=== PATIENT | female | born 2000 | race Caucasian/White ===

== ENCOUNTER 2021-05-01 05:39 | Outpatient (CLI) | payer MEDICAID ==
[~2021-05-01] VITALS: Ht 147.3 cm; Wt 53.2 kg
[2021-05-01] MEDS ORDERED: LAMO100T69 PO (12:51)
[2021-05-01] MEDS ORDERED: BUSP15TA60 PO (12:51)
== END 2021-05-01 12:54 | disposition home or self-care (01) ==
LOC: PREOP 05:39
PROVIDERS: ATTEND Otolaryngology Otolaryngology/Facial Plastic Surgery
DX: Z01.818 Encounter for other preprocedural examination (principal)

== ENCOUNTER 2021-05-08 06:11 | Day surgery (SDC) | payer MEDICAID ==
[~2021-05-08] VITALS: Ht 147 cm; Wt 53.2 kg
[~2021-05-08 06:11] MED LIST: BUSP15TA60 PO; LAMO100T69 PO
--- NOTE | 2021-05-08 06:48 | Progress Note-Pre Operative ---
Pre-Operative Progress Note H&P Reviewed The H&P was reviewed, patient examined and no changes noted. Date Seen by Provider: May 08, 2021 Time Seen by Provider: 06:30 Date H&P Reviewed: May 08, 2021 Time H&P Reviewed: 06:30 Pre-Operative Diagnosis: Rec Tons/ Tonsillar HYpertrophy PATRICIO BROTHERS MD May 08, 2021 06:48
[2021-05-08] MEDS ORDERED: MIDAZOLAM 2 MG/2 ML (VERSED) VIAL ONE ×2 (07:05→07:42)
[2021-05-08 07:09] LABS: BASOPHILS # (AUTO) 0.1 10^3/uL (0.0-0.1); BASOPHILS % (AUTO) 1 % (0-10); EOSINOPHILS # (AUTO) 0.2 10^3/uL (0.0-0.3); EOSINOPHILS % (AUTO) 2 % (0-10); HEMATOCRIT 42 % (35-52); LYMPHOCYTES # (AUTO) 2.6 10^3/uL (1.0-4.0); LYMPHOCYTES % (AUTO) 40 % (12-44); MEAN CORPUSCULAR HEMOGLOBIN 30 pg (25-34); MEAN CORPUSCULAR HGB CONC 33 g/dL (32-36); MEAN CORPUSCULAR VOLUME 91 fL (80-99); MEAN PLATELET VOLUME 10.5 fL (9.0-12.2); MONOCYTES # (AUTO) 0.5 10^3/uL (0.0-1.0); MONOCYTES % (AUTO) 8 % (0-12); NEUTROPHILS # (AUTO) 3.2 10^3/uL (1.8-7.8); NEUTROPHILS % (AUTO) 49 % (42-75); PLATELET COUNT 266 10^3/uL (130-400); WHITE BLOOD COUNT 6.6 10^3/uL (4.3-11.0)
[2021-05-08] MEDS ORDERED: LACTATED RINGERS 1,000 ML IV PRN (07:15)
[2021-05-08] MEDS ORDERED: MIDAZOLAM 2 MG/2 ML (VERSED) VIAL IV ONE (07:15)
[2021-05-08] MEDS ORDERED: MIDAZOLAM 2 MG/2 ML (VERSED) VIAL IVP ONE (07:15)
[2021-05-08] MEDS ORDERED: GLYCOPYRROLATE 0.2 MG/ML (ROBINUL) 2 ML VIAL ONE ×2 (07:42→08:57)
[2021-05-08] MEDS ORDERED: NEOSTIGMINE 3 MG/3 ML VIAL ONE ×2 (07:42→08:54)
[2021-05-08] MEDS ORDERED: proPOfol 200 MG/20 ML (DIPRIVAN) VIAL IV ONE (07:42)
[2021-05-08] MEDS ORDERED: ONDANSETRON 4 MG/2 ML (SDV) Z0FRAN ONE ×2 (07:42→09:47)
[2021-05-08] MEDS ORDERED: ROCURONIUM 10 MG/ML 5 ML SYRINGE IV ONE (07:42)
[2021-05-08] MEDS ORDERED: LIDOCAINE PF 2% 5 ML (XYLOCAINE) VIAL ONE (07:42)
[2021-05-08] MEDS ORDERED: fentaNYL INJ 100 MCG/2 ML AMP ONE (07:42)
--- NOTE | 2021-05-08 08:18 | Progress Note-Post Operative ---
Post-Operative Progess Note Surgeon (s)/Celluloid Trimmer (s) Surgeon PATRICIO BROTHERS MD Celluloid Trimmer n/a Pre-Operative Diagnosis Rec Tons/ Tonsillar HYpertrophy Post-Operative Diagnosis same Post-Op Procedure Note Date of Procedure: May 08, 2021 Name of Procedure Performed: T/A Description & Findings Description and Findings: n/a Anesthesia Type get Estimated Blood Loss minimal Packing none. Specimen(s) collected/removed tonsils PATRICIO BROTHERS MD May 08, 2021 08:18
[2021-05-08] MEDS ORDERED: NS IV 1000 ML 1,000 ML IV SCH (08:30)
[2021-05-08] MEDS ORDERED: HYDROcodone/APAP 7.5MG-325 MG/15 ML (LORTAB) UDC PO PRN (08:30)
[2021-05-08] MEDS ORDERED: APAP 325 MG/10.15 ML LIQ (TYLENOL) UDC PO PRN (08:30)
[2021-05-08 08:47] VITALS: BP 134/92
[2021-05-08 08:50] VITALS: BP 149/96
--- NOTE | 2021-05-08 08:52 | Anesthesia-General Post-Op ---
General Patient Condition Mental Status/LOC: Same as Preop Cardiovascular: Satisfactory Nausea/Vomiting: Absent Respiratory: Satisfactory Pain: Controlled Complications: Absent Post Op Complications Complications None Follow Up Care/Instructions Patient Instructions None needed. Anesthesia/Patient Condition Patient Condition Patient is doing well, no complaints, stable vital signs, no apparent adverse anesthesia problems. No complications reported per nursing. KOFI MORALEZ CRNA May 08, 2021 08:52
[2021-05-08 09:00] VITALS: BP 133/86
[2021-05-08] MEDS ORDERED: MEPERIDINE (DEMEROL) INJ 50 MG/ML IVP ONE (09:00)
[2021-05-08] MEDS ORDERED: morphine INJ 10 MG/ML 1ML (SYR OR VIAL) IVP ONE (09:00)
[2021-05-08] MEDS ORDERED: fentaNYL INJ 100 MCG/2 ML AMP IVP ONE (09:00)
[2021-05-08] MEDS ORDERED: ONDANSETRON 4 MG/2 ML (SDV) Z0FRAN IVP PRN (09:00)
[2021-05-08 09:10] VITALS: BP 135/82
[2021-05-08 09:20] VITALS: BP 130/86
[2021-05-08 09:30] VITALS: BP 129/84
[2021-05-08] MEDS ORDERED: ONDANSETRON 4 MG/2 ML (SDV) Z0FRAN IVP ONE (09:45)
[2021-05-08] MEDS ORDERED: TETRACAINESUCKERS MT (11:14)
[2021-05-08] MEDS ORDERED: DEXAINTSOL PO (11:14)
[2021-05-08] MEDS ORDERED: AMOX250S5 PO (11:14)
[2021-05-08] MEDS ORDERED: HYDR15SO8 PO (11:14)
--- OUTSIDE RECORDS SUMMARY | 2021-05-10 20:07 | XMS REPORT | Continuity of Care Document ---
Author Author [facility] Organization [facility] Address Unknown Phone Unavailable Care Team Providers Care Ccna Name Role Phone Daryl Gregory PCP (0)- Encounter [facility] [phone] Date(s): 05/05/21 - 05/05/21 [facility] [address] [place], [place] [address] Discharge Disposition: Home or Self Care Attending Physician: Bridger Atkins Admitting Physician: Bridger Atkins Allergies, Adverse Reactions, Alerts No data available for this section Assessment and Plan No data available for this section Functional Status No data available for this section Immunizations No data available for this section Medications No data available for this section Mental Status No data available for this section Problem List No data available for this section Procedures No data available for this section Results Laboratory List Name Date SARS-CoV-2 by PCR 05/05/21 Most recent to 1 oldest [Reference Range]: SARS-CoV-2 NEGATIVE [NEGATIVE] (05/05/21 4:46 PM) Vital Signs No data available for this section Social History No data available for this section Health Concerns No data available for this section Medical Equipment No data available for this section Hospital Discharge Instructions No data available for this section Goals No data available for this section Reason for Referral No data available for this section Hospital Course No data available for this section
--- OUTSIDE RECORDS SUMMARY | 2021-05-10 20:07 | XMS REPORT | Clinical Summary ---
Author Author Nighat, Jean Carlos Stafford Organization [facility] Address Unknown Phone Unavailable Allergies, Adverse Reactions, Alerts Allergy Name Reaction Description Start Date Severity Status Pr ovider No Known Allergies MALLIKA Corcoran Conditions or Problems Problem Name Problem Code Onset Date Status Entry Date Provider Comment Standard Description Annotate NOCTURNAL ENURESIS 788.36 Resolved Odalys Iraheta APRN Nocturnal enuresis WELL CHILD V20.2 Active Daryl Gregory MD Routine or child health check SINUSITIS, ACUTE 461.9 Resolved Daryl Gregory MD Acute sinusitis, unspecified NEOPLASM OF UNCERTAIN BEHAVIOR OF SKIN 238.2 Resolved Odalys Iraheta APRN Neoplasm of uncertain behavior of skin ACNE VULGARIS 706.1 Active Daryl Gregory MD Other acne Upper respiratory infection 465.9 Resolved Kimberly Handley MD PhD Acute upper respiratory infections of un specified site Joint pain 719.40 Resolved Kimberly Handley MD PhD Pain in joint, site unspecified Sinusitis, acute 461.9 Resolved Odalys Iraheta APRN Acute sinusitis, unspecified Pharyngitis 462 Resolved Odalys Iraheta APRN Acute pharyngitis Abdominal pain, acute 789.00 Resolved Mady Iraheta APRN Abdominal pain, unspecified site Hand, foot and mouth disease 074.3 Resolved Odalys Iraheta APRN Hand, foot, and mouth disease Sports physical V70.3 Resolved Daryl Grady Other general medical examination for administrative purposes Depression with anxiety 300.4 Active Sid Iraheta APRN Dysthymic disorder Suicidal ideation V62.84 Resolved Odalys barclay APRN Suicidal ideation Contraception counseling V25.09 Active Odalys Irhaeta APRN Encounter for other general counseling and advice on contraceptive management Safe sex and std prevention counseling V65.45 Resolved Daryl Gregory MD Counseling on other sexually transmitted diseases U R I 465.9 Resolved Daryl Gregory MD Acute upper respiratory infections of unspecified site Bronchitis 490 Resolved Daryl Gregory MD Bronchitis, not specified as acute or chronic Oppositional defiant disorder 313.81 Active 12/10 Summer Villalobos Oppositional defiant disorder of childho od or adolescence Bipolar 1 disorder 296.7 Active Summer Villalobos Bipolar I disorder, most recent episode (or current) unspecified Abdominal pain, RUQ 789.01 Resolved Daryl valdivia MD Abdominal pain, right upper quadrant Body Mass Index Percentile Pediatric 5th percentile to less than 85th percentile for age Active Daryl Gregory MD Body Mass Index, pediatric, 5th percentile to less than 85th percentile for age Hand, foot and mouth disease 074.3 Resolved Daryl Gregory MD Hand, foot, and mouth disease High risk medication management V58.69 Active 2017 Yulisa Burks LRT Long-term (current) use of other medicat ions Otitis media, right 382.9 Resolved Bettie oRberts [employer]ER Unspecified otitis media Abdominal pain, acute 789.00 Resolved Garrett 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 Abdominal pain, unspecified site Acute otitis externa, right 380.10 Resolved Bettie 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 Infective otitis externa, unspecified Eustachian tube dysfunction, bilateral 381.81 Resolved Bettie 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 Dysfunction of Eustachian tube Acute bronchitis 466.0 Resolved Daryl Gregory MD Acute bronchitis Pharyngitis 462 Active Daryl Gregory MD Acute pharyngitis Vomiting 787.03 Active Daryl Gregory MD Vomiting alone Preoperative exam V72.84 Active Hope Srinivasan Preoperative examination, unspecified NOCTURNAL ENURESIS ICD-788.36 Inactive Delores Iraheta [employer] HEATER INSTALLER SINUSITIS, ACUTE ICD-461.9 Inactive Daryl johnson MD NEOPLASM OF UNCERTAIN BEHAVIOR OF SKIN ICD-238.2 Inactive Odalys Iraheta [employer] HEATER IN[employer]ALLER Upper respiratory infection ICD-465.9 Inactive Kimberly Handley MD PhD Joint pain ICD-719.40 Inactive Kimberly Handley MD PhD Sinusitis, acute ICD-461.9 Inactive Allie Iraheta [employer] WATER HEATER INSTALLER Pharyngitis ICD-462 Inactive Odalys barclay [employer] WATER HEATER INSTALLER Abdominal pain, acute ICD-789.00 Inactive Mady Iraheta [employer] WATER HEATER INSTALLER Hand, foot and mouth disease ICD-074.3 Inactiv e Odalys Iraheta [employer] W[employer] HEATER INSTALLER Sports physical ICD-V70.3 Inactive Daryl Boone MD Suicidal ideation ICD-V62.84 Inactive Jammie Iraheta [employer] W[employer] HEATER INSTALLER Safe sex and std prevention counseling ICD-V65.45 20/09/03 Inactive Daryl Gregory MD U R I ICD-465.9 Inactive Daryl Gregory MD 2017 Bronchitis ICD-490 Inactive Daryl Gregory MD 201 05/11/06 Abdominal pain, RUQ ICD-789.01 Inactive Octavio Gregory MD Hand, foot and mouth disease ICD-074.3 Inactiv e Daryl Gregory MD Otitis media, right ICD-382.9 Inactive Moniq ue Armando [employer] W[employer] HEATER INSTALLER Abdominal pain, acute ICD-789.00 Inactive Mon ique Armando [employer] WATER HEATER INSTALLER Acute otitis externa, right ICD-380.10 Inactive Bettie Frankfort [employer] WATER HEATER INSTALLER Eustachian tube dysfunction, bilateral ICD-381.81 22/05/20 Inactive Bettie Frankfort [employer] WATER HEATER INSTALLER Acute bronchitis ICD-466.0 Inactive Daryl johnson MD Medication List Medication Instructions Start Date Stop Date Generic Name NDC Status Provider Patient Instruction TRANSDERM-SCOP (1.5 MG) 1 MG/3DAYS TRANSDERMAL PATCH 7 2 HOUR Apply 1 patch behind ear and change q3 days SCOPOLAMINE BASE 34805173180 Active MALLIKA Corcoran Active PROMETHAZINE HCL 25 MG ORAL TABLET 1 four times a day as nee ded for vomiting PROMETHAZINE HCL 55774606411 Active Susana Downing MA Active FLOVENT HFA 44 MCG/ACT INHALATION INHALER 2 puffs BID x2 weeks 2016 FLUTICASONE PROPIONATE HFA 44640541254 Active Bettie Armando [employer] INST[employer]ER Active VENTOLIN HFA 108 (90 BASE) MCG/ACT INHALATION AEROSOL SOLUTION 1-2 puffs up to four times a day as needed for cough or wheezing ALBUTEROL SULFATE 15006864213 Active Bettie Armando HERRERAN Active [id number] 1 % OTIC SOLUTION 4 drops to ear every 6 hours for 7 days [id number]-[id number]-MA 43762905586 No Longer Active Mo maxwell Armando YE Active LAMICTAL 10 MG ORAL TABLET (LAMOTRIGINE) LAMICTAL 10 MG ORAL TABLET (LAMOTRIGINE) Active Amira Estrada APRN-C Active AMOXICILLIN 500 MG ORAL TABLET 1 three times a day for 10 days 2 AMOXICILLIN 64598608826 No Longer Active Daryl Gregory MD Active BUSPIRONE HCL 10 MG ORAL TABLET Take 1 tablet by mouth twice daily BUSPIRONE HCL 85134928936 Active Lelo Shaw MA Active TESSALON PERLES 100 MG ORAL CAPSULE 2 tablets by mouth 3 times daily as needed for cough BENZONATATE 35315526544 No Longer Active Daryl Gregory MD Active GUAIFENESIN-CODEINE 100-10 MG/5ML ORAL SYRUP 5ml every 4 to 6 hours as needed for cough GUAIFENESIN-CODEINE 75629871027 No Longe r Active Daryl Gregory MD Active ZOLOFT 50 MG ORAL TABLET SERTRALINE HC L 42309612032 No Longer Active Daryl Gregory MD Active ABILIFY 10 MG ORAL TABLET Take 1 tablet by mouth at night 6 ARIPIPRAZOLE 81064912820 Active Daryl Gregory MD Active PREDNISONE 20 MG TABS Take 2 daily for 3 days and then 1 elenita ly for 3 days PREDNISONE 65721865518 No Longer Active Daryl johnson MD Active ZITHROMAX Z-CHAYA 250 MG TABS Take two tablets today and then 1 tablet daily for 4 days AZITHROMYCIN 60031696404 No Longer Active Octavio Gregory MD Active PREDNISONE 20 MG ORAL TABLET 2 tablets by mouth today, then 1 tablet by mouth days 2-4 PREDNISONE 03820151846 No Longer Active Daryl Gregory MD Active PAROXETINE HCL 20 MG ORAL TABLET 1 tab daily PAROXETINE HCL 19827570789 No Longer Active Hildasanti Florian Viktor ctive GENERESS FE TABLET CHEWABLE NORETHIN -ETH ESTRADIOL-FE CHEW 94979441385 Active Hildalorene Florian Active SPRINTEC 28 0.25-35 MG-MCG ORAL TABLET 1 pill by mouth daily for control for one month until mirena placement NOR GESTIMATE-ETH ESTRADIOL 15941515640 No Longer Active Hildasanti Florian Viktor ctive CLARITIN 10 MG ORAL TABLET 1 tablet by mouth daily as needed for allergies LORATADINE 99954511409 No Longer Active Odalys sosa APRN Active AZITHROMYCIN 250 MG ORAL TABLET 2 tabs po daily for 5 days. take with food AZITHROMYCIN 02471614845 No Longer Active Elizabeth cabrla APRN Active AZITHROMYCIN 250 MG ORAL TABLET 2 po qd x 1 day, then 1 po q d x 4 days AZITHROMYCIN 05454109297 No Longer Active Kimberly piedra MD PhD Active IMIPRAMINE HCL 10 MG ORAL TABLET 2- 4 TABS PO Q D 2014 IMIPRAMINE HCL 81096277702 No Longer Active Kimberly Handley MD PhD Ac tive GUAIFENESIN-CODEINE 100-10 MG/5ML ORAL SYRUP 1 tsp PO q6h PRN co ugh GUAIFENESIN-CODEINE 18211025093 No Longer Active Daryl Grady Active ATROVENT 0.06 % NASAL SOLUTION 1 to 2 sprays each nostril qi d prn runny nose IPRATROPIUM BROMIDE 10387251947 No Longer Active William Gregory MD Active RETIN-A 0.025 % EXTERNAL CREAM apply every evening to acne 06/02 TRETINOIN 53232304720 No Longer Active Daryl Gregory MD Active AMOXICILLIN 500 MG ORAL CAPSULE 2 po BID x 10 days 201 12/04/15 AMOXICILLIN 19979795222 No Longer Active Kimberly Handley MD PhD Acti ve RETIN-A 0.025 % EXTERNAL CREAM apply every evening to acne 06/02 RETIN-A 0.025 % EXTERNAL CREAM 214356 TRETINOIN I nactive ATROVENT 0.06 % NASAL SOLUTION 1 to 2 sprays each nostril qi d prn runny nose ATROVENT 0.06 % NASAL SOLUTION IPRATROPIU M BROMIDE Inactive GUAIFENESIN-CODEINE 100-10 MG/5ML ORAL SYRUP 1 tsp PO q6h PRN co ugh GUAIFENESIN-CODEINE 100-10 MG/5ML ORAL SYRUP GUA IFENESIN-CODEINE Inactive IMIPRAMINE HCL 10 MG ORAL TABLET 2- 4 TABS PO Q D 2014 IMIPRAMINE HCL 10 MG ORAL TABLET 155674 IMIPRAMINE HCL Inactiv e CLARITIN 10 MG ORAL TABLET 1 tablet by mouth daily as needed for allergies CLARITIN 10 MG ORAL TABLET 431979 LORATADINE I nactive SPRINTEC 28 0.25-35 MG-MCG ORAL TABLET 1 pill by mouth daily for control for one month until mirena placement SPR INTEC 28 0.25-35 MG-MCG ORAL TABLET 916087 NORGESTIMATE-ETH ESTRADIOL Inactive PAROXETINE HCL 20 MG ORAL TABLET 1 tab daily PAROXETINE HCL 20 MG ORAL TABLET 2782260 PAROXETINE HCL Inactive PREDNISONE 20 MG ORAL TABLET 2 tablets by mouth today, then 1 tablet by mouth days 2-4 PREDNISONE 20 MG ORAL TABLET 022886 PREDNIS ONE Inactive ZOLOFT 50 MG ORAL TABLET ZOLOFT 50 M G ORAL TABLET 053114 SERTRALINE HCL Inactive GUAIFENESIN-CODEINE 100-10 MG/5ML ORAL SYRUP 5ml every 4 to 6 hours as needed for cough GUAIFENESIN-CODEINE 100-10 MG/5ML ORAL SY RUP GUAIFENESIN-CODEINE Inactive TESSALON PERLES 100 MG ORAL CAPSULE 2 tablets by mouth 3 times daily as needed for cough TESSALON PERLES 100 MG ORAL CAPSULE 31823 7 BENZONATATE Inactive AMOXICILLIN 500 MG ORAL TABLET 1 three times a day for 10 days 2 AMOXICILLIN 500 MG ORAL TABLET 228324 AMOXICILLIN I nactive [id number]-YG 1 % OTIC SOLUTION 4 drops to ear every 6 hours for 7 days [id number]-[id number] 1 % OTIC SOLUTION 499183 [id number]-[id number]-TF Inactive AMOXICILLIN 500 MG ORAL CAPSULE 2 po BID x 10 days 201 12/04/15 AMOXICILLIN 500 MG ORAL CAPSULE 733291 AMOXICILLIN Inactive AZITHROMYCIN 250 MG ORAL TABLET 2 po qd x 1 day, then 1 po q d x 4 days AZITHROMYCIN 250 MG ORAL TABLET 213245 AZITHROMY YOMAIRA Inactive AZITHROMYCIN 250 MG ORAL TABLET 2 tabs po daily for 5 days. take with food AZITHROMYCIN 250 MG ORAL TABLET 293225 AZITHROMY YOMAIRA Inactive ZITHROMAX Z-CHAYA 250 MG TABS Take two tablets today and then 1 tablet daily for 4 days ZITHROMAX Z-CHAYA 250 MG TABS 553663 AZITHROM YCIN Inactive PREDNISONE 20 MG TABS Take 2 daily for 3 days and then 1 elenita ly for 3 days PREDNISONE 20 MG TABS 226441 PREDNISONE Inacti ve Advance Directives Directive Description Start Date DECREE OF ADOPTION Immunizations Vaccine Administration Date Value Standard Mt cription meningococcal vaccination #2 Menveo (Meningococc al)IM Human Papillomavirus vaccine (Gardasil) #2, (HPV #2) 10/07 Gardasil [CVX62] Adacel (Tetanus, reduced Diphtheria, and acellular Per tussis Immunization) Adacel [[id number]] Human Papillomavirus Vaccine (Gardasil) #1 Given (HPV #1) 20 16/05/30 Gardasil [CVX62] Hepatitis A vaccine, ped/adol, 2 dose (H avrix 2 dose ped/adol, Vaqta ped/adol), #2 Havrix (2 dose - Ped/Adol) [CVX83] hepatitis A immunization #1 Havrix-Pedi DPT immunization #5 Historical oral polio vaccine (OPV) #4 Historical MMR (measles, mumps, rubella) virus immunization #2 MMR chicken pox immunization #2 Varicella Vax DPT immunization #4 Historical Hemophilus influenza B immunization #4 Historica l DPT immunization #3 Historical oral polio vaccine (OPV) #3 Historical pediatric pneumococcal vaccine (Prevnar)#3 Histo rical MMR (measles, mumps, rubella) virus immunization #1 MMR chicken pox immunization #1 Varicella Vax hepatitis B vaccine #3 Historical DPT immunization #2 Historical Hemophilus influenza B immunization #3 Historica l oral polio vaccine (OPV) #2 Historical pediatric pneumococcal vaccine (Prevnar)#2 Histo rical hepatitis B vaccine #2 given Historical DPT immunization #1 Historical Hemophilus influenza B immunization #2 Historica l oral polio vaccine (OPV) #1 Historical pediatric pneumococcal vaccine (Prevnar) #1 Hist orical hepatitis B vaccine #1 given Historical Hemophilus influenza B immunization #1 Historica l Encounters Code Encounter Date Provider Facility CPT-86992 [id number] Vst-Est Level III 10:38:36 [employer] Daryl Gregory MD [facility] CPT-62650 60591-Nnh Vst-Est Level III 16:03:05 CDT Bettie 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 [facility] CPT-57508 Level 3 Est. Patient 09:59:07 CDT Fatmata MONTENEGRO [facility] CPT-08973 Level 3 Est. Patient 12:58:43 CDT Amira Estrada EPHRAIM-C [facility]-00675 12688-Tdd Vst-Est Level III 10:55:50 [employer] Daryl Gregory MD [facility]-24605 57680-Vfz Vst-Est Level III 15:37:15 CDT Daryl Gregory MD [facility] CPT-16571 Level 3 Est. Patient 13:52:37 CDT Ángel norton MD [facility]-56967 90649-Chn Vst-Est Level III 10:58:54 CDT Daryl Gregory MD [facility]-30484 Level 3 Est. Patient 11:59:55 [employer] Daryl Gregory MD [facility] CPT-31769 Level 3 Est. Patient 18:27:22 [employer] Daryl Gregory MD [facility] CPT-84168 Level 3 Est. Patient 14:36:14 [employer] Hilda fuentes [facility] CPT-91394 Level 3 Est. Patient 18:17:43 CDT Odalys Iraheta [facility] CPT-78802 Level 4 Est. Patient 15:30:33 [employer] Odalys Iraheta [facility] CPT-78577 Level 3 Est. Patient 14:04:45 CDT Odalys Iraheta [facility] CPT-64774 Level 3 Est. Patient 16:33:21 CDT Odalys Iraheta [facility] CPT-61782 Level 3 Est. Patient 08:56:40 [employer] Elizabeth li [facility]-03671 Level 3 Est. Patient 11:19:31 CDT Kimberly thakur MD PhD [facility] CPT-88416 Level 3 Est. Patient 16:01:55 CDT Daryl Gregory MD [facility] CPT-68358 Level 3 Est. Patient 10:28:10 [employer] Daryl Gregory MD [facility] CPT-49613 Level 3 Est. Patient 11:01:38 [employer] Kimberly thakur MD PhD [facility] Procedures Code Procedure Name Date Entry Date Standard Desc ription CPT-OH8165X (4274F 2P) Patient Reason Influenza immu nization not administered 10:38:36 [employer] CPT-39267 63384 - Immun Admin each additional 1 6:50:21 [employer] CPT-87449 Bexsero (Meningococcal) 10PK Syringe 16:50:21 [employer] CPT-96601 30985 - Immun Admin 1 vac 16:50:21 [employer] 2018 CPT-81111 Menveo (Meningococcal)IM 16:50:21 [employer] 08/11 CPT-11937 UHCG (urine) - LAB USE ONLY 13:07:18 CDT 20 20/02/08 CPT-03493 Abdomen, 2 views 13:00:47 CDT CPT-15446 UHCG Urine - FLOOR USE ONLY 12:59:50 CDT 20 20/02/08 CPT-033 [facility] Med Screen 16:24:43 [employer] CPT-19695 Sono abd khoury iinc RUQ LUQ ascites search or pylorus - XRAY USE ONLY 10:33:41 CDT CPT-78576 Chest 2V Frontal and Lat - XRAY USE ONLY 11:42:42 [employer] CPT-000 Give Appropriate Flu Vaccine 16:46:54 [employer] 2 CPT-000 Give Gardasil 15:36:49 CDT CPT-19117 CBC - LAB USE ONLY 17:14:56 [employer] CPT-78145 Venipuncture Draw Fee 17:14:56 [employer] CPT-96265 First Vx - Ix admin via ID I M or jet injects without counseling by physician 17:02:00 [employer] CPT-033 KB Med Screen 16:46:52 [employer] CPT-86129 First Vx - Ix admin via ID I M or jet injects without counseling by physician 16:05:26 CDT CPT-59013 Gardasil 9 Intramuscular Suspension 1 6:05:26 CDT CPT-PV Prev. Care Visit 15:36:49 CDT CPT-033 KB Med Screen 17:33:34 CDT CPT-46926 Administration single or combination vac cine inc oral 09:21:57 [employer] CPT-00546 Gardasil 09:21:57 [employer] CPT-37079 No Charge Offi Visit 16:32:52 CDT 3 CPT-LR Lesion Removal 11:19:02 CDT CPT-60943 Administration 2+ single or combination vaccines inc oral 12:45:32 CDT CPT-92472 Administration single or combination vac cine inc oral 12:45:32 CDT CPT-84049 Meningococcal Conjugate Vacine (Menactra) 06/02 12:45:32 CDT CPT-15919 Gardasil 12:45:32 CDT CPT-56490 Tdap 12:45:32 CDT CPT-000 Give Immunizations Due 11:07:01 CDT CPT-033 KB Med Screen 11:07:01 CDT CPT-033 KB Med Screen 15:59:17 CDT CPT-24544 Administration single or combination vac cine inc oral 17:38:36 CDT CPT-26655 Hepatitis A ped/adol 2 dose schedule 17:38:36 CDT
== END 2021-05-08 11:45 ==
LOC: SDC 06:11
PROVIDERS: ATTEND Otolaryngology Otolaryngology/Facial Plastic Surgery
DX: J03.91 Acute recurrent tonsillitis, unspecified (principal); J98.8 Other specified respiratory disorders; J35.3 Hypertrophy of tonsils with hypertrophy of adenoids
CPT/HCPCS: 36415; 84703; 85025; 87081; 88304